=== PATIENT | female | born 1975 | race Caucasian/White ===

== ENCOUNTER → 2017-12-05 15:43 | Outpatient (CLI) | payer MEDICAID, SELFPAY ==
--- NOTE | 2017-12-03 | FLU_PTH ---
PATIENT: ROB BAGLEY LOC: [facility] U#:[id number] AGE/SX: 49/F ROOM: RE12/05/[address]: Dr. Brii Goodman MD : 1975 BED: DIS: SPEC #: [id number] RECD: 12/05/17 08:43 STATUS: LILIAN MCMANUSEddie #: [id number] JESSICA: 12/03/17 00:[address]: Brii Goodman DEPT: CYTOLOGY RECD BY: Cristobal Thompson Tissues: A - Thyroid gland, NOS B - Thyroid gland, NOS Procedures: Pap Stain (control) Special Stain Group II Surgery Specimen Level IV Cell Block Cytospin Fluid HEADER OPERATION: Ultrasound-guided left thyroid fine needle aspiration PRE-OP DIAGNOSIS: Abnormal thyroid ultrasound TISSUE SUBMITTED: A - FNA left thyroid fluid for cytology, B - FNA left thyroid 6 slides DIAGNOSIS CYTOLOGY A. Left thyroid nodule fluid for cytology, FNA (cytospin and cell block): Benign follicular cells noted. B. Left thyroid nodule, FNA (smears): Consistent with benign follicular nodule. See cytology study and comment. SJ:rg 12/07/17 COMMENT The findings may represent adenomatoid nodule. Correlation with clinical, radiologic findings and appropriate follow up are necessary. CYTOLOGY STUDY Slides are reviewed. The specimen is adequate for evaluation. The specimen consists of benign follicular cells. CYTOLOGY GROSS A - Received is 30 ml of red, cloudy fluid labeled with the patient's name and and designated per the requisition as left thyroid. Submitted for cytology preparation including cell block. B - Received are six smears labeled with the patient's name and designated per the requisition as left thyroid. Submitted for staining. / 12/06/17 TC:5 CPT: 65286, 86455, 68331
== END ==
PROVIDERS: Visit Provider Surgery
DX: R93.8 Abnormal findings on diagnostic imaging of other specified body structures (principal)
CPT/HCPCS: 88108; 88305; 88313

== ENCOUNTER 2018-06-27 07:06 | Day surgery (SDC) | payer MEDICAID, SELFPAY ==
[2018-06-27 07:32] VITALS: BP 119/93; PULSE 99; RESP 16; TEMP 36.8; O2SAT 98; BMI 39.4
[2018-06-27 07:41] LABS: Internal QC Validated? YES +Cl - CLEAR BKGD; Pregnancy, Urine Negative Negative
[2018-06-27] MEDS: Acetaminophen 500 MG Tablet 1000 MG PO (07:43)
[2018-06-27] MEDS: Ketorolac 30 MG/ML Syringe 60 MG IM (07:44)
--- NOTE | 2018-06-27 08:15 | DCINST_ITS ---
Discharge Diet: No Restrictions Discharge Activity: Return to Normal Activity, May Shower, May Take a Tub Bath - in 2 weeks. May shower in (days): 0 May resume sexual activity in: 2 weeks Call your doctor if your incision/area has: Sudden Increased Bleeding, Foul Smelling Discharge, - - You should expect some moderate bleeding and/or watery discharge for up to 4-5 weeks Call your doctor if you observe: Fever of 101 or Higher, Using more than one pad per hour - for 2 hrs in a row Allergies/Adverse Reactions: Allergies latex Allergy (Verified 06/24/18 12:14) Rash prednisone Allergy (Verified 06/24/18 12:14) Swelling Medications to take at Discharge Acetaminophen [Tylenol] 500 - 1,000 mg PO Q6H PRN PRN 06/24/18 Cyclobenzaprine [Flexeril] 10 mg PO QHS 06/24/18 Gabapentin [Neurontin] 100 mg PO TID 06/24/18 Oxycodone HCl/Acetaminophen [Percocet 5-325] 1 tablet PO Q6H PRN PRN 06/24/18 Sertraline HCl [Zoloft] 50 mg PO DAILY 06/24/18 Primary Care Physician: Malik Almazan DO [Primary Care Provider] - Test Results: Test results from this visit will be discussed in further detail at your follow- up appointment, if applicable.
[2018-06-27 08:49] VITALS: BP 114/72; BP 119/93; PULSE 101; RESP 16; TEMP 37.2; O2SAT 92
--- NOTE | 2018-06-27 08:54 | OP.PCM_ITS ---
Report of Operation Date of Procedure: 06/27/18 Pre-Operative Diagnosis: menorrhagia Post-Operative Diagnosis: Same Surgery/Procedure Performed:: Hysteroscopy with Siena endometrial ablation Description of Surgical Findings:: Very anteverted uterus, small cervix, normal vagina. Normal-appearing endometrial cavity. Normal proliferative endometrium without polyps or focal abnormalities director of event marketing: None Type of Anesthesia:: MAC Special Medications: None Specimen's removed: None Drains: None Estimated Blood Loss (mL): 10 Fluids Replaced: 700 cc LR Description of Procedure: The patient was taken to the OR where she was prepped and draped in dorsal lithotomy position. The weighted speculum was placed in the vagina and the anterior lip of the cervix was grasped with a single-tooth tenaculum. The cervix was dilated serially with Hegar dilators. The 5mm hysteroscope was placed into the uterine cavity and the above findings were noted. Bilateral tubal ostia were identified. The uterus sounded to 8.5 cm and the cervical length was 4 cm. The endometrial cavity length was 4.5 cm. The hysteroscope was removed. The Siena device was set to 4.5 cm. The instrument was then seated into the endometrial cavity and the indicator was in the green. The cervical seal balloon was inflated and the uterine integrity test was passed. The ablation procedure was initiated and completed without interruption. During the ablation procedure gentle traction was held on the tenaculum and the Siena device was held up against the uterine fundus. When the ablation procedure was completed the Siena was removed. The tenaculum was removed and the tenaculum site was noted to be hemostatic. All sponge and needle counts were correct. A vaginal sweep was performed by me. The patient was awakened and taken to the recovery room in stable condition. Hysteroscopic ins: 100 cc normal saline Hysteroscopic outs: 50 cc Findings: Endometrial cavity: Normal, no fibroids or polyps noted Cervix: Normal Vagina: Normal Grafts/Implants Used: None - Complications None - Admit VTE Documentation VTE Present on Admission: No VTE Mechan Device Prophylaxis: SCD's VTE Pharm Prophylaxis ordered?: No Reason prophylaxis not ordered:: Procedure Not Indicated
[2018-06-27 08:55] VITALS: BP 119/93; BP 120/83; PULSE 96; RESP 16; O2SAT 92
[2018-06-27 09:00] VITALS: BP 114/91; BP 119/93; PULSE 102; RESP 16; O2SAT 93
[2018-06-27 09:05] VITALS: BP 116/89; BP 119/93; PULSE 95; RESP 16; TEMP 36.9; O2SAT 98
[2018-06-27 10:19] VITALS: BP 119/93; BP 134/90; PULSE 94; RESP 16; TEMP 36.4; O2SAT 98
--- OUTSIDE RECORDS SUMMARY | 2018-08-22 06:58 | XMS RPT_ITS ---
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 needed. Supporting Information Below: Medications: Current Outpatient Prescriptions: ferrous sulfate (IRON) 325 mg (65 mg iron) tablet Take 1 tablet by mouth twice daily. lansoprazole (PREVACID) 15 mg capsule Take 15 mg by mouth once daily. aspirin/acetaminophen/caffeine (EXCEDRIN MIGRAINE ORAL) Take 2 capsules by mouth. Prn CPAP Please send correct size mask: size small nasal dreamware mask. Send a chin strap, heated tubing, lifetime supplies. G47.33 Obstructive Sleep Apnea sertraline (ZOLOFT) 50 mg tablet Take 1 tablet by mouth once daily. Cholecalciferol, Vitamin D3, 5,000 unit cap Take 1 capsule by mouth once daily. thiamine (VITAMIN B-1) 100 mg tablet Take 1 tablet by mouth twice daily. nystatin (NYSTOP) powder Apply 1 application to affected area three times daily. cyclobenzaprine (FLEXERIL) 10 mg tablet Take 1 tablet by mouth at bedtime as needed for Muscle Spasm. CPAP Initiate CPAP @ 5-10 cm of water with heated humidification. Mask (per patient preference) optional chin strap (if indicated) , filters, tubing, humidifier and lifetime supplies. ibuprofen (MOTRIN) 600 mg tablet Take 600 mg by mouth every 6 hours as needed. COMPOUNDED PRESCRIPTION Natural Calm 325mg daily. promethazine (PHENERGAN) 25 mg tablet Take 0.5 tablets by mouth every 8 hours as needed for Nausea/Vomiting. COMPOUNDED PRESCRIPTION X Factor Plexus Vitamin No current facility-administered medications for this visit. Allergies: Latex; Prednisone This note was partially generated using hovelstay voice recognition system, and there may be some incorrect words, spellings, and punctuation that were not noted in checking the note before saving. Theo Lau MD CBC Collected: 04/11/2018 Status: F Source: [place] 11:45 AM [facility] REPOSITORY TYPE CODE TESTS RESULT OUT OF REFERENCE UNITS RANGE LAB WBC 3.70-11.00 k/uL WBC High 11.96 LAB RBC 3.90-5.20 m/uL RBC 4.91 LAB HGB 11.5-15.5 g/dL Hemoglobin 12.7 LAB HCT 36.0-46.0 % Hematocrit 42.8 LAB MCV 80.0-100.0 fL MCV 87.2 LAB MCH 26.0-34.0 pG Low MCH 25.9 LAB MCHC 30.5-36.0 g/dL Low MCHC 29.7 LAB RDWCV 11.5-15.0 % RDW-CV High 19.5 LAB PLTCT 150-400 k/uL Platelet Count 340 LAB MPV 9.0-12.7 fL MPV 9.3 LAB ABSNUC <0.01 k/uL Absolute nRBC <0.01 Performed By: #### CBC, IRON, FERR #### [facility] [address] [place], [place] [address] IRON AND TIBC Collected: 04/11/2018 Status: F Source: [place] 11:45 AM [facility] REPOSITORY TYPE CODE TESTS RESULT OUT OF REFERENCE UNITS RANGE LAB IRN 41-186 ug/dL Iron 73 LAB TIBC 232-386 ug/dL TIBC 312 LAB SAT 15-57 % Transferrin Saturatn 23 Performed By: #### CBC, IRON, FERR #### [facility] [address] [place], [place] [address] FERRITIN Collected: 04/11/2018 Status: F Source: [place] 11:45 AM [facility] REPOSITORY TYPE CODE TESTS RESULT OUT OF REFERENCE UNITS RANGE LAB FERR 14.7-205.1 ng/mL High Ferritin 1540.0 Performed By: #### CBC, IRON, FERR #### [facility] [address] [place] [address] PROGRESS Observed: 04/11/2018 Status: COMPLETED Source: [place] 11:03 AM [facility] REPOSITORY HNO ID: [id number] Author: Indu (Rn) AUTUMN Merino Service: (none) Author Type: Registered Nurse Type: Progress Notes Filed: 04/11/2018 12:50 PM Note Text: AMB ROOMING INTAKE FLOWSHEET DATA Risk Screening Do you have concerns about personal safety or safety in the home?: No Pain Pain Location: (Right palm ) Description: (sensitive ) Duration Amount of Time: 6 Duration Units: Weeks Frequency: Intermittent Patient presents with: Established Patient: 6 week 1 day postop right CTR patient is here with family member for 6 week follow up, patient states she still has sensitivity in right palm of hand at times when picking objects up. Incision site well healed. Indu Merino RN CNOV Observed: 04/11/2018 Status: COMPLETED Source: [place] 10:30 AM [facility] REPOSITORY Office Visit (AMANDA) ROB BERNABE ([id number]) 1975 F Date Time Provider Department 04/11/18 10:30 AM THEO LAU During your visit today, we recorded the following information about you: Indu Merino RN, RN 04/11/2018 12:50 PM Signed AMB ROOMING INTAKE FLOWSHEET DATA Risk Screening Do you have concerns about personal safety or safety in the home?: No Pain Pain Location: (Right palm ) Description: (sensitive ) Duration Amount of Time: 6 Duration Units: Weeks Frequency: Intermittent Patient presents with: Established Patient: 6 week 1 day postop right CTR patient is here with family member for 6 week follow up, patient states she still has sensitivity in right palm of hand at times when picking objects up. Incision site well healed. AUTUMN Hansen MD 04/11/2018 12:50 PM Signed Theo Lau MD Department of Orthopaedics Orthopaedics [address] [place] [address] Dept: [phone] Dept April 11, 2018 CHIEF COMPLAINT: Established Patient (6 week 1 day postop right CTR). ASSESSMENT: G56.01 Carpal tunnel syndrome on right (primary encounter diagnosis) SUMMARY/PLAN: patient is 6 weeks status post carpal tunnel release on the right. She is doing very well and all of her symptoms have resolved. She has some mild and appropriate sensitivity or soreness in the palm. Otherwise she is very pleased with her results thus far. she may consider the left side down the line. She can follow-up as needed. Supporting Information Below: Medications: Current Outpatient Prescriptions: ferrous sulfate (IRON) 325 mg (65 mg iron) tablet Take 1 tablet by mouth twice daily. lansoprazole (PREVACID) 15 mg capsule Take 15 mg by mouth once daily. aspirin/acetaminophen/caffeine (EXCEDRIN MIGRAINE ORAL) Take 2 capsules by mouth. Prn CPAP Please send correct size mask: size small nasal dreamware mask. Send a chin strap, heated tubing, lifetime supplies. G47.33 Obstructive Sleep Apnea sertraline (ZOLOFT) 50 mg tablet Take 1 tablet by mouth once daily. Cholecalciferol, Vitamin D3, 5,000 unit cap Take 1 capsule by mouth once daily. thiamine (VITAMIN B-1) 100 mg tablet Take 1 tablet by mouth twice daily. nystatin (NYSTOP) powder Apply 1 application to affected area three times daily. cyclobenzaprine (FLEXERIL) 10 mg tablet Take 1 tablet by mouth at bedtime as needed for Muscle Spasm. CPAP Initiate CPAP @ 5-10 cm of water with heated humidification. Mask (per patient preference) optional chin strap (if indicated) , filters, tubing, humidifier and lifetime supplies. ibuprofen (MOTRIN) 600 mg tablet Take 600 mg by mouth every 6 hours as needed. COMPOUNDED PRESCRIPTION Natural Calm 325mg daily. promethazine (PHENERGAN) 25 mg tablet Take 0.5 tablets by mouth every 8 hours as needed for Nausea/Vomiting. COMPOUNDED PRESCRIPTION X Factor Plexus Vitamin No current facility-administered medications for this visit. Allergies: Latex; Prednisone This note was partially generated using hovelstay voice recognition system, and there may be some incorrect words, spellings, and punctuation that were not noted in checking the note before saving. Theo Lau MD Referring Provider: ASIYA KELLER) [[id number]] Allergies As of Date: 04/11/2018 Noted Allergy Reaction LATEX 03/05/2007 2 - Rash PREDNISONE 10/02/2016 7 - Swelling Comments: Legs swelled Date Reviewed: 04/11/2018 Reviewed by: Theo Lau - Fully Assessed Reason for Visit: Established Patient [175] Cmt: 6 week 1 day postop right CTR Primary Visit Diagnosis:Carpal tunnel syndrome on right [G56.01] Prescriptions as of 04/11/2018 Sig: FERROUS SULFATE 325 MG (65 MG* Take 1 tablet by mouth twice * LANSOPRAZOLE 15 MG CAPSULE,DE* Take 15 mg by mouth once volodymyr* EXCEDRIN MIGRAINE ORAL Take 2 capsules by mouth. Prn CPAP Please send correct size mask* SERTRALINE 50 MG TABLET Take 1 tablet by mouth once d* CHOLECALCIFEROL (VITAMIN D3) * Take 1 capsule by mouth once * THIAMINE HCL (VITAMIN B1) 100* Take 1 tablet by mouth twice * NYSTATIN 100,000 UNIT/GRAM TO* Apply 1 application to affect* CYCLOBENZAPRINE 10 MG TABLET Take 1 tablet by mouth at bed* CPAP Initiate CPAP @ 5-10 cm of wa* IBUPROFEN 600 MG TABLET Take 600 mg by mouth every 6 * COMPOUNDED PRESCRIPTION Natural Calm 325mg daily. PROMETHAZINE 25 MG TABLET Take 0.5 tablets by mouth benjamin* COMPOUNDED PRESCRIPTION X Factor Plexus Vitamin Problem List As Of Date 04/11/2018 Noted Resolved Depressive disorder, not elsewhere classified [*INVALID FOR*11/06/2017 ABDOMINAL WITH IUP [O00.01] INVALID FOR*07/26/2007 PREV DELIVERY NOS-ANTEPART [O34.219] INVALID FOR*01/17/2008 SUPRF HIGH RISK NEC [O09.899] INVALID FOR*01/17/2008 INCISIONAL HERNIA [K43.2] INVALID FOR*08/04/2008 Incisional hernia [K43.2] INVALID FOR* Headache [R51] INVALID FOR*11/06/2017 Migraine headache [G43.909] INVALID FOR*11/06/2017 Migraine, transformed [G43.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] INVALID FOR*11/06/2017 Migraine with aura [G43.109] INVALID FOR*11/06/2017 Photophobia [H53.149] INVALID FOR*11/06/2017 Migraine with aura and without status migrainos*INVALID FOR* 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 Right carpal tunnel syndrome [G56.01] INVALID FOR* More... 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] INVALID FOR* Iron deficiency anemia due to chronic blood los*INVALID FOR* Iron deficiency anemia due to dietary causes [D*INVALID FOR* Encounter Status:Closed by THEO LAU MD on 04/11/18 PROGRESS Observed: 03/29/2018 Status: COMPLETED Source: [place] 8:10 AM [facility] REPOSITORY HNO ID: [id number] Author: Viktoriya Ca (Sw) Service: (none) Author Type: Reference Assistant Type: Progress Notes Filed: 03/29/2018 8:10 AM Note Text: SOCIAL WORK FOLLOW UP NOTE: [facility] Date of service: March 29, 2018 Rob Bernabe is being seen for a follow up social work visit. Today's visit includes: patient not present TOPICS ADDRESSED: Patient showed up on First Time Treatment Report list. SAMPSON reviewed patient's chart and found that patient is being seen for benign hematology/non-oncology services. No actions needed at this time. PLAN: Continue follow up as needed F/U APPOINTMENT: SUSHILA Dial CNSW Observed: 03/29/2018 Status: COMPLETED Source: [place] 12:00 AM [facility] REPOSITORY Social Work (HEMKAYLA) ROB BERNABE ([id number]) 1975 F Date Time Provider Department 03/29/18 VIKTORIYA CA (SAMPSON) STELLA During your visit today, we recorded the following information about you: SUSHILA Prasad 03/29/2018 8:10 AM Signed SOCIAL WORK FOLLOW UP NOTE: [facility] Date of service: March 29, 2018 Rob Bernaeb is being seen for a follow up social work visit. Today's visit includes: patient not present TOPICS ADDRESSED: Patient showed up on First Time Treatment Report list. SAMPSON reviewed patient's chart and found that patient is being seen for benign hematology/non-oncology services. No actions needed at this time. PLAN: Continue follow up as needed F/U APPOINTMENT: SUSHILA Dial Allergies As of Date: 03/29/2018 Noted Allergy Reaction LATEX 03/05/2007 2 - Rash PREDNISONE 10/02/2016 7 - Swelling Comments: Legs swelled Date Reviewed: 03/28/2018 Reviewed by: Xiao Pace (Rn) AUTUMN Briscoe - Fully Assessed Reason for Visit: Social Work Services [507] Prescriptions as of 03/29/2018 Sig: FERROUS SULFATE 325 MG (65 MG* Take 1 tablet by mouth twice * LANSOPRAZOLE 15 MG CAPSULE,DE* Take 15 mg by mouth once volodymyr* EXCEDRIN MIGRAINE ORAL Take 2 capsules by mouth. Prn CPAP Please send correct size mask* SERTRALINE 50 MG TABLET Take 1 tablet by mouth once d* CHOLECALCIFEROL (VITAMIN D3) * Take 1 capsule by mouth once * THIAMINE HCL (VITAMIN B1) 100* Take 1 tablet by mouth twice * NYSTATIN 100,000 UNIT/GRAM TO* Apply 1 application to affect* CYCLOBENZAPRINE 10 MG TABLET Take 1 tablet by mouth at bed* CPAP Initiate CPAP @ 5-10 cm of wa* IBUPROFEN 600 MG TABLET Take 600 mg by mouth every 6 * COMPOUNDED PRESCRIPTION Natural Calm 325mg daily. PROMETHAZINE 25 MG TABLET Take 0.5 tablets by mouth benjamin* COMPOUNDED PRESCRIPTION X Factor Plexus Vitamin Problem List As Of Date 03/29/2018 Noted Resolved Depressive disorder, not elsewhere classified [*INVALID FOR*11/06/2017 ABDOMINAL WITH IUP [O00.01] INVALID FOR*07/26/2007 PREV DELIVERY NOS-ANTEPART [O34.219] INVALID FOR*01/17/2008 SUPRF HIGH RISK NEC [O09.899] INVALID FOR*01/17/2008 INCISIONAL HERNIA [K43.2] INVALID FOR*08/04/2008 Incisional hernia [K43.2] INVALID FOR* Headache [R51] INVALID FOR*11/06/2017 Migraine headache [G43.909] INVALID FOR*11/06/2017 Migraine, transformed [G43.709] INVALID FOR*11/06/2017 Migraine with aura [G43.109] INVALID FOR*11/06/2017 Photophobia [H53.149] INVALID FOR*11/06/2017 Migraine with aura and without status migrainos*INVALID FOR* 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 Right carpal tunnel syndrome [G56.01] INVALID FOR* More... 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] INVALID FOR* Iron deficiency anemia due to chronic blood los*INVALID FOR* Iron deficiency anemia due to dietary causes [D*INVALID FOR* Encounter Status:Closed by VIKTORIYA CA on 03/29/18 KIRIT ABS GR + CBC Collected: 03/26/2018 Status: F Source: [place] 2:09 PM [facility] REPOSITORY TYPE CODE TESTS RESULT OUT OF REFERENCE UNITS RANGE LAB WWBC 3.70-11.00 k/uL [place] High WBC 11.40 LAB WRBC 3.90-5.20 m/uL [place] RBC 4.81 LAB WHGB 11.5-15.5 g/dL [place] Hemoglobin 12.3 LAB WHCT 36.0-46.0 % [place] Hematocrit 39.3 LAB WMCV 80.0-100.0 fL [place] MCV 81.7 LAB WMCH 26.0-34.0 pg Low [place] MCH 25.6 LAB WMCHC 30.5-36.0 g/dL [place] MCHC 31.3 LAB WRDW 11.5-15.0 % [place] High RDW 15.8 LAB WPLT 150-400 k/uL [place] High Platelet Cnt 416 LAB WMPV 9.0-12.7 fL Low [place] MPV 8.9 Result Comment: Test performed at: [facility], [address] [place] [address] Rd[address] [place] [address]. LAB ABGRAN 1.45-7.50 k/uL Abs[place] Gran 7.43 Count IRON AND TIBC Collected: 03/26/2018 Status: F Source: [place] 2:09 PM [facility] REPOSITORY TYPE CODE TESTS RESULT OUT OF REFERENCE UNITS RANGE LAB IRN 41-186 ug/dL Low Iron 28 LAB TIBC 232-386 ug/dL TIBC 385 LAB SAT 15-57 % Low Transferrin Saturatn 7 Performed By: #### IRON, FERR #### [facility] [address] [place], [place] [address] FERRITIN Collected: 03/26/2018 Status: F Source: [place] 2:09 PM [facility] REPOSITORY TYPE CODE TESTS RESULT OUT OF REFERENCE UNITS RANGE LAB FERR 14.7-205.1 ng/mL Ferritin 21.5 Performed By: #### IRON, FERR #### [facility] [address] [place], [place] [address] PROGRESS Observed: 03/12/2018 Status: COMPLETED Source: [place] 11:30 AM [facility] REPOSITORY HNO ID: [id number] Author: Theo Lau Service: (none) Author Type: Physician Type: Progress Notes Filed: 03/12/2018 1:13 PM Note Text: Theo Lau MD Department of Orthopaedics Orthopaedics [address] [place] [address] Dept: [phone] March 12, 2018 CHIEF COMPLAINT: Established Patient (13 day postop Right CTR and suture removal ). ASSESSMENT: G56.01 Carpal tunnel syndrome of right wrist (primary encounter diagnosis) SUMMARY/PLAN: Patient is just shy of 2 weeks status post right carpal tunnel release. She had her stitches removed. She is extremely pleased so far with her results. She really has very minor discomfort in the hand and all of her numbness and tingling and nighttime symptoms have resolved. She may consider some time down the line surgery on the left but for now it's just minor symptoms for her and she will follow up on an as-needed basis. Exam: Surgical site looks excellent. No redness or any concerns. Intact suture line. Excellent range of motion. No bruising. Supporting Information Below: Medications: Current Outpatient Prescriptions: sertraline (ZOLOFT) 50 mg tablet Take 1 tablet by mouth once daily. cyclobenzaprine (FLEXERIL) 10 mg tablet Take 1 tablet by mouth at bedtime as needed for Muscle Spasm. ibuprofen (MOTRIN) 600 mg tablet Take 600 mg by mouth every 6 hours as needed. promethazine (PHENERGAN) 25 mg tablet Take 0.5 tablets by mouth every 8 hours as needed for Nausea/Vomiting. ferrous sulfate (IRON) 325 mg (65 mg iron) tablet Take 1 tablet by mouth twice daily. lansoprazole (PREVACID) 15 mg capsule Take 15 mg by mouth once daily. aspirin/acetaminophen/caffeine (EXCEDRIN MIGRAINE ORAL) Take 2 capsules by mouth. Prn CPAP Please send correct size mask: size small nasal dreamware mask. Send a chin strap, heated tubing, lifetime supplies. G47.33 Obstructive Sleep Apnea Cholecalciferol, Vitamin D3, 5,000 unit cap Take 1 capsule by mouth once daily. thiamine (VITAMIN B-1) 100 mg tablet Take 1 tablet by mouth twice daily. nystatin (NYSTOP) powder Apply 1 application to affected area three times daily. CPAP Initiate CPAP @ 5-10 cm of water with heated humidification. Mask (per patient preference) optional chin strap (if indicated) , filters, tubing, humidifier and lifetime supplies. COMPOUNDED PRESCRIPTION Natural Calm 325mg daily. COMPOUNDED PRESCRIPTION X Factor Plexus Vitamin No current facility-administered medications for this visit. Allergies: Latex; Prednisone This note was partially generated using hovelstay voice recognition system, and there may be some incorrect words, spellings, and punctuation that were not noted in checking the note before saving. Theo Lau MD PROGRESS Observed: 03/12/2018 Status: COMPLETED Source: [place] 11:06 AM [facility] REPOSITORY HNO ID: [id number] Author: Indu Ludwig) AUTUMN Merino Service: (none) Author Type: Registered Nurse Type: Progress Notes Filed: 03/12/2018 1:13 PM Note Text: AMB ROOMING INTAKE FLOWSHEET DATA Risk Screening Do you have concerns about personal safety or safety in the home?: No Pain Pain Score: 0/10 Patient presents with: Established Patient: 13 day postop Right CTR and suture removal patient is here for postop for right CTR and suture removal. Educated patient on keeping site clean and dry and open to air unless going to store, place bandaid on. Look for sign of infection. Cleaned with chlora-prep and removed sutures. Indu Merino RN CNOV Observed: 03/12/2018 Status: COMPLETED Source: [place] 10:45 AM [facility] REPOSITORY Office Visit (ORMDNA) ROB BERNABE ([id number]) 1975 F Date Time Provider Department 03/12/18 10:45 AM THEO LAU During your visit today, we recorded the following information about you: Indu Merino RN, RN 03/12/2018 1:13 PM Signed AMB ROOMING INTAKE FLOWSHEET DATA Risk Screening Do you have concerns about personal safety or safety in the home?: No Pain Pain Score: 0/10 Patient presents with: Established Patient: 13 day postop Right CTR and suture removal patient is here for postop for right CTR and suture removal. Educated patient on keeping site clean and dry and open to air unless going to store, place bandaid on. Look for sign of infection. Cleaned with chlora-prep and removed sutures. AUTUMN Hansen MD 03/12/2018 1:13 PM Signed Theo Lau MD Department of Orthopaedics Orthopaedics [address] [place], [place] [address] Dept: [phone] March 12, 2018 CHIEF COMPLAINT: Established Patient (13 day postop Right CTR and suture removal ). ASSESSMENT: G56.01 Carpal tunnel syndrome of right wrist (primary encounter diagnosis) SUMMARY/PLAN: Patient is just shy of 2 weeks status post right carpal tunnel release. She had her stitches removed. She is extremely pleased so far with her results. She really has very minor discomfort in the hand and all of her numbness and tingling and nighttime symptoms have resolved. She may consider some time down the line surgery on the left but for now it's just minor symptoms for her and she will follow up on an as- needed basis. Exam: Surgical site looks excellent. No redness or any concerns. Intact suture line. Excellent range of motion. No bruising. Supporting Information Below: Medications: Current Outpatient Prescriptions: sertraline (ZOLOFT) 50 mg tablet Take 1 tablet by mouth once daily. cyclobenzaprine (FLEXERIL) 10 mg tablet Take 1 tablet by mouth at bedtime as needed for Muscle Spasm. ibuprofen (MOTRIN) 600 mg tablet Take 600 mg by mouth every 6 hours as needed. promethazine (PHENERGAN) 25 mg tablet Take 0.5 tablets by mouth every 8 hours as needed for Nausea/Vomiting. ferrous sulfate (IRON) 325 mg (65 mg iron) tablet Take 1 tablet by mouth twice daily. lansoprazole (PREVACID) 15 mg capsule Take 15 mg by mouth once daily. aspirin/acetaminophen/caffeine (EXCEDRIN MIGRAINE ORAL) Take 2 capsules by mouth. Prn CPAP Please send correct size mask: size small nasal dreamware mask. Send a chin strap, heated tubing, lifetime supplies. G47.33 Obstructive Sleep Apnea Cholecalciferol, Vitamin D3, 5,000 unit cap Take 1 capsule by mouth once daily. thiamine (VITAMIN B-1) 100 mg tablet Take 1 tablet by mouth twice daily. nystatin (NYSTOP) powder Apply 1 application to affected area three times daily. CPAP Initiate CPAP @ 5-10 cm of water with heated humidification. Mask (per patient preference) optional chin strap (if indicated) , filters, tubing, humidifier and lifetime supplies. COMPOUNDED PRESCRIPTION Natural Calm 325mg daily. COMPOUNDED PRESCRIPTION X Factor Plexus Vitamin No current facility-administered medications for this visit. Allergies: Latex; Prednisone This note was partially generated using hovelstay voice recognition system, and there may be some incorrect words, spellings, and punctuation that were not noted in checking the note before saving. Theo Lau MD Referring Provider: ASIYA KELLER) [[id number]] Allergies As of Date: 03/12/2018 Noted Allergy Reaction LATEX 03/05/2007 2 - Rash PREDNISONE 10/02/2016 7 - Swelling Comments: Legs swelled Date Reviewed: 03/12/2018 Reviewed by: Theo Lau - Fully Assessed Reason for Visit: Established Patient [175] Cmt: 13 day postop Right CTR and suture removal Primary Visit Diagnosis:Carpal tunnel syndrome of right wrist [G56.01] Prescriptions as of 03/12/2018 Sig: X SERTRALINE 50 MG TABLET Take 1 tablet by mouth once d* X CYCLOBENZAPRINE 10 MG TABLET Take 1 tablet by mouth at bed* IBUPROFEN 600 MG TABLET Take 600 mg by mouth every 6 * PROMETHAZINE 25 MG TABLET Take 0.5 tablets by mouth benjamin* X FERROUS SULFATE 325 MG (65 MG* Take 1 tablet by mouth twice * Patient not taking: Reported on 05/23/2018 LANSOPRAZOLE 15 MG CAPSULE,DE* Take 15 mg by mouth as needed* EXCEDRIN MIGRAINE ORAL Take 2 capsules by mouth. Prn CPAP Please send correct size mask* CHOLECALCIFEROL (VITAMIN D3) * Take 1 capsule by mouth once * THIAMINE HCL (VITAMIN B1) 100* Take 1 tablet by mouth twice * NYSTATIN 100,000 UNIT/GRAM TO* Apply 1 application to affect* CPAP Initiate CPAP @ 5-10 cm of wa* COMPOUNDED PRESCRIPTION Natural Calm 325mg daily. COMPOUNDED PRESCRIPTION X Factor Plexus Vitamin Medication notes this encounter FERROUS SULFATE 325 MG (65 MG IRON) TABLET >> Indu Merino, AUTUMN, RN 03/12/2018 11:06 AM >> INDU MERINO Mar 12, 2018 11:06 AM Not taking THIAMINE HCL (VITAMIN B1) 100 MG TABLET >> Indu Merino RN, RN 03/12/2018 11:05 AM >> INDU MERINO Mar 12, 2018 11:05 AM Not taking Problem List As Of Date 03/12/2018 Noted Resolved Depressive disorder, not elsewhere classified [*INVALID FOR*11/06/2017 ABDOMINAL WITH IUP [O00.01] INVALID FOR*07/26/2007 PREV DELIVERY NOS-ANTEPART [O34.219] INVALID FOR*01/17/2008 SUPRF HIGH RISK NEC [O09.899] INVALID FOR*01/17/2008 INCISIONAL HERNIA [K43.2] INVALID FOR*08/04/2008 Incisional hernia [K43.2] INVALID FOR* Headache [R51] INVALID FOR*11/06/2017 Migraine headache [G43.909] INVALID FOR*11/06/2017 Migraine, transformed [G43.709] INVALID FOR*11/06/2017 Migraine with aura [G43.109] INVALID FOR*11/06/2017 Photophobia [H53.149] INVALID FOR*11/06/2017 Migraine with aura and without status migrainos*INVALID FOR* 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 [facility] [place] Repository 05/23/2018/05/27/20 [id number] Ambulatory [facility] [place] Repository 05/01/2018/05/02/20 [id number] Ambulatory [facility] [place] Repository 05/01/2018/05/01/20 [id number] Ambulatory [facility] [place] Repository 04/11/2018/04/11/20 [id number] Ambulatory [facility] [place] Repository 04/11/2018/04/15/20 [id number] Ambulatory [facility] [place] Repository 04/04/2018/04/05/20 [id number] Ambulatory [facility] [place] Repository 03/28/2018/03/29/20 [id number] Ambulatory [facility] [place] Repository 03/26/2018/03/27/20 [id number] Ambulatory [facility] [place] Repository 03/12/2018/03/14/20 [id number] Ambulatory [facility] [place] Repository 02/27/2018/02/28/20 [id number] JUDI Ambulatory [facility] Other [place] Repository 02/26/2018/07/31/20 [id number] Ambulatory [facility] [place] Repository 02/26/2018/02/27/20 [id number] Ambulatory [facility] [place] Repository 02/21/2018/03/03/20 [id number] Ambulatory [facility] [place] Repository 02/14/2018/02/16/20 [id number] Ambulatory [facility] [place] Repository 02/05/2018/02/06/20 [id number] Ambulatory [facility] [place] Repository 02/05/2018/02/07/20 [id number] Ambulatory [facility] [place] Repository 02/05/2018/02/07/20 [id number] Ambulatory [facility] [place] Repository 01/31/2018/02/05/20 [id number] Ambulatory [facility] [place] Repository 01/09/2018/01/12/20 [id number] Ambulatory [facility] [place] Repository 01/01/2018/01/03/20 [id number] Ambulatory [facility] [place] Repository 12/20/2017/12/26/19 [id number] Ambulatory [facility] [place] Repository 12/11/2017/12/12/19 [id number] Ambulatory [facility] [place] Repository 12/11/2017/12/12/19 [id number] Ambulatory [facility] [place] Repository 12/05/2017 [id number] Ambulatory [facility] ding:LABSPEC Repository 12/05/2017/12/11/19 [id number] Ambulatory [facility] [place] Repository 12/05/2017/12/08/19 [id number] Ambulatory [facility] [place] Repository 11/28/2017/11/29/19 [id number] Ambulatory [facility] [place] Repository 11/28/2017/11/30/19 [id number] Ambulatory [facility] [place] Repository 11/21/2017/11/22/19 [id number] Ambulatory [facility] [place] Repository 10/24/2017/10/26/19 [id number] Ambulatory [facility] [place] Repository 10/23/2017/11/07/19 [id number] Ambulatory [facility] [place] Repository 09/04/2017/09/04/19 [id number] Ambulatory [facility] [place] Repository 08/17/2017/08/17/19 [id number] Emergency UNIBuilding: [address] Repository 07/18/2017/07/18/20 [id number] Ambulatory [address] Repository 07/18/2017 [id number] Ambulatory [facility] Repository PAYERS PAYERS ENCOUNTER GUARANTOR PAYER SUBSCRIBER SOURCE 07/16/2018 ROB Copeland Primary ROB Copeland [facility] [id number] Insurance:[facility] Number: Repository [address], [id number] [place] [address]Cbu: Date: () 07/09/2018 ROB S Primary ROB Min [facility] GISINGERDOB: Insurance:[facility] System W MEDICAIDPolicy [id number] Repository MAIN Number: [address], [id number] [place] [address]Tam: Date: () 06/27/2018 ROB Copeland Primary ROB Eliasoster [id number] Insurance:[facility]: [facility] Number: [id number] Hospital [address], [id number] Repository [place] [address]Puf: Date:2018-06-04[address]ATTN: CLAIMS () [place] [address]OY: 06/27/2018 Secondary NOT GIVENUNK [place] Insurance:SELF PAY [facility] Number: Effective Repository Date:2018-06-04 06/19/2018 ROB S Primary ROB S [facility] GISINGERDOB: Insurance:[facility] Health System W MEDICAIDPolicy [id number] Repository MAIN Number: [address], [id number] [place] [address]Pzo: Date: () 06/13/2018 ROB S Primary ROB S [facility] GISINGERDOB: Insurance:[employer] GISINGERDOB: Health System W MEDICAIDPolicy [id number] Repository MAIN Number: [address], [id number] [place] [address]Nzb: Date: () 06/13/2018 ROB S Primary ROB Zapien [facility] GISINGERDOB: Insurance[facility] GISINGERDOB: Health System W MEDICAIDPolicy [id number] Repository MAIN Number: [address], [id number] [place] [address]Hmf: Date: () 06/04/2018 ROB S Primary ROB Zapien [facility] GISINGERDOB: [facility] GISINGERDOB: Health System W MEDICAIDPolicy [id number] Repository MAIN Number: [address], [id number] [place] [address]Ipx: Date: (HP) 12/05/2017 Rob Primary Rob Eliasoster [id number] Insurance:[facility]: [facility] Number: [id number] [facility] [address], [id number] Repository [place] [address]Flz: Date:2017-12-05[address]ATTN: CLAIMS () [place] [address]YQ: 12/05/2017 [facility]:SELF PAY [facility] Number: Effective Repository Date:2017-12-05 08/17/2017 ROB S Primary ROB Copeland [facility] [id number] Insurance:[facility] Number: Repository [address], [id number] [place] [address]Fss: Date: ()
== END 2018-06-27 10:23 | disposition home or self-care (01) ==
LOC: SDC 07:07 → AC 07:08
PROVIDERS: Family Provider Student in an Organized Health Care Education/Training Program; PCP Student in an Organized Health Care Education/Training Program; Referring Provider Obstetrics & Gynecology; Visit Provider Obstetrics & Gynecology
PROC: 0U5B8ZZ Destruction of Endometrium, Via Natural or Artificial Opening Endoscopic (ICD-10-PCS; CPT 58558; principal; 2018-06-27 08:10)
DX: N92.0 Excessive and frequent menstruation with regular cycle (principal); D50.9 Iron deficiency anemia, unspecified; F43.23 Adjustment disorder with mixed anxiety and depressed mood; G47.33 Obstructive sleep apnea (adult) (pediatric); E55.9 Vitamin D deficiency, unspecified; G43.809 Other migraine, not intractable, without status migrainosus; K21.9 Gastro-esophageal reflux disease without esophagitis; E66.9 Obesity, unspecified; Z68.39 Body mass index [BMI] 39.0-39.9, adult; Z87.891 Personal history of nicotine dependence; Z79.891 Long term (current) use of opiate analgesic; Z79.899 Other long term (current) drug therapy
CPT/HCPCS: 58558; 81025; J7120; J2405

== ENCOUNTER 2018-12-31 18:59 | Emergency (ER) | payer MEDICAID, SELFPAY ==
[2018-12-31 19:00] VITALS: BP 161/105; PULSE 102; RESP 18; TEMP 36.8; O2SAT 98; BMI 39.9
[2018-12-31] MEDS: DiphenhydrAMINE 50 MG/ML Syringe 25 MG IV (19:29)
[2018-12-31] MEDS: 0.9% Normal Saline 1,000 ML 999 ML IV (19:29)
[2018-12-31] MEDS: proCHLORPERazine 10 MG/2 ML Vial IV (19:30)
[2018-12-31] MEDS: Ketorolac 15 MG/ML Vial IV (19:32)
[2018-12-31 19:35] LABS: Absolute Lymphocyte Count 3.52 X10^3/ul (0.83-4.51); Absolute Neutrophil Count 7.7 X10^3/uL (2.0-7.7); Basophil# 0.04 X10^3/uL; Basophil% 0.3 % (0-1); Eosinophil# 0.32 X10^3/uL; Eosinophils% 2.6 % (0-5); Hematocrit 43.7 % (37-47); Hemoglobin 14.5 g/dl (12.0-15.0); Lymphocyte # 3.52 X10^3/ul (4.0); Lymphocyte % 28.6 % (19-41); Mean Corp Hgb Conc 33.2 g/gl (32-36); Mean Corpuscular Hgb 28.9 pg (27.0-32.0); Mean Corpuscular Volume 87.2 fL (81-99); Mean Platelet Vol. 8.9 fl (6.2-12.0); Monocyte# 0.67 X10^3/uL; Monocyte% 5.5 % (0-10); Neutrophil % 62.7 % (47-70); Platelet Count 359 K/mm3 (150-450); RBC Distribution Width CV 13.3 % (11.6-14.6); RBC Distribution Width SD 42.4 fl (35.1-43.9); Red Blood Count 5.01 M/mm3 (4.2-5.4); White Blood Count 12.3 K/mm3 (4.4-11.0)
[2018-12-31 19:36] VITALS: BP 146/96; PULSE 116; RESP 18; O2SAT 96
[2018-12-31 19:39] LABS: POSITIVE COUNT NO; POSITIVE DIFFERENTIAL NO; POSITIVE MORPHOLOGY NO
[2018-12-31 20:08] LABS: Anion Gap 9 (5-15); BUN 7 mg/dL (7-18); BUN/Creat Ratio 7.7 RATIO (10-20); Calcium,Total 8.9 mg/dL (8.5-10.1); Chloride 102 mmol/L (98-107); EST Glomerular Filtration Rate 72 mL/min (>60); Est Glom Filt Rate - Afr Amer 87 mL/min (>60); Estimated Creatinine Clearance 63.75 ml/min; Glucose 117 mg/dL (74-106); Potassium 3.7 mmol/L (3.5-5.1); Sodium Level 136 mmol/L (136-145); Thyroid Stim Hormone (TSH) 2.42 uIU/mL (0.358-3.74)
[2018-12-31 20:10] VITALS: BP 124/83; PULSE 95; RESP 16; O2SAT 96
--- NOTE | 2018-12-31 20:55 | ED.DCSUM_ITS ---
- ER Visit Summary Date of Service: 12/31/18 Chief Complaint: Feeling weird History of Present Illness: The patient is a 43 F who feels weird. The symptoms started today when she was at the store. She feels off. She feels like her brain is running 1,000,000 miles a minute. She said this never happened before. It is associated with a headache. She has a history of migraines, trigeminal neuralgia, depression, fibromyalgia, and hypothyroidism. She denies any changes to her medications. Denies any anxiety or suicidal thoughts. Denies fevers or recent illnesses. Denies injury. Physical Examination: Afebrile and vital signs are unremarkable except blood pressure 161/105. HEENT exam unremarkable. Head and neck are atraumatic. Heart regular. Lungs clear. Skin appears normal. Cranial nerves grossly intact. Normal strength and sensation. Normal reflexes and cerebellar testing. Test Results: White count 12.3. Otherwise patient has no symptoms or findings concerning for infection. Metabolic panel unremarkable. TSH 2.42. Emergency Department Course and Treatment: Patient treated for her migraine headache with saline, Compazine, Benadryl, and Toradol. Labs as above. On reevaluation, the patient's headache went from a 6 to a 3. Her other symptoms had resolved. I believe the patient is safe for outpatient follow-up. No indication for further emergent testing, hospitalization, or other care. Patient voiced agreement. Treatment Plan: As above Disposition: Discharge Impression: 1. Cephalgia This note was generated with [employer]he[employer] dictation software. It may contain incorrect words, spelling, and punctuation that were not noted in review of the chart prior to signing ED Disposition - Plan for ED Patient: Referrals: Malik Almazan DO [Primary Care Provider] -
--- NOTE | 2018-12-31 20:55 | ED.DEP ---
ED Disposition - Plan for ED Patient: Instructions: ED Weakness UKO Referrals: Malik Almazan DO [Primary Care Provider] -
[2018-12-31 21:03] VITALS: BP 129/86; PULSE 80; RESP 15; O2SAT 98
== END 2018-12-31 21:06 | disposition home or self-care (01) ==
LOC: ED 19:55
PROVIDERS: Emergency Provider Emergency Medicine; Family Provider Student in an Organized Health Care Education/Training Program; PCP Student in an Organized Health Care Education/Training Program
DX: R51 Headache (principal)
CPT/HCPCS: 80048; 84443; 85025; 96361; 96374; 96375; 99283; J7030